=== PATIENT | female | born 1985 | race Caucasian/White ===

== ENCOUNTER 2017-09-24 11:44 | Emergency (ER) | payer MEDICARE, MEDICAID ==
[2017-09-24 12:15] VITALS: BP 141/77
--- NOTE | 2017-09-24 12:22 | UC ---
Lower Extremity/Ankle HPI - HPI Summary HPI Summary: per mom, pt was at dayhab on friday, that night he had L foot pain and swelling. , he went to his pcp and had negative xrays. here for ongoing pain and swelling. he is wearing his mom's flip flop. mom states pt is non verbal due to aspergers and down syndrom. there is no known hx injury. mom denies fever. - History of Current Complaint Chief Complaint: UCLowerExtremity Stated Complaint: RIGHT FOOT/ANKLE COMPLAINT Time Seen by Provider: 09/24/17 12:07 Hx Obtained From: Family/Manager Of Quality Onset/Duration: Gradual Onset Pain Intensity: 6 Aggravating Factor(s): Ambulation Alleviating Factor(s): Nothing Able to Bear Weight: Yes - Allergies/Home Medications Allergies/Adverse Reactions: Allergies Allergy/AdvReac Type Severity Reaction Status Date / Time cefaclor [From [facility]] Allergy Hives Verified 09/24/17 12:12 Sulfa (Sulfonamide Allergy Hives Verified 09/24/17 12:12 Antibiotics) Home Medications: Home Medications Ibuprofen TAB* [Advil TAB*] 400 mg PO Q6H PRN 09/24/17 [History Confirmed ] PMH/Surg Hx/FS Hx/Imm Hx - Additional Past Medical History Additional PMH: Down syndrom, aspergers Endocrine History: Diabetes - Surgical History Surgical History: Yes Surgery Procedure, Year, and Place: [facility], 1997, [place] - Family History Known Family History: Positive: Other - thyroid dz - Social History Occupation: Disabled Lives: With Family Alcohol Use: None Substance Use Type: None Smoking Status (MU): Never Smoked Tobacco - Immunization History Vaccination Up to Date: Yes Review of Systems Constitutional: Negative Skin: Negative ENT: Negative Respiratory: Negative Cardiovascular: Negative Gastrointestinal: Negative Genitourinary: Negative Motor: Negative Neurovascular: Negative Musculoskeletal: Other: - pain/swell R foot/ankle Neurological: Negative Psychological: Negative All Other Systems Reviewed And Are Negative: Yes - Comments Additional Review of Systems Comments: mom states he understands her son and denies all other ros Physical Exam Triage Information Reviewed: Yes Appearance: Well-Appearing Vital Signs: Initial Vital Signs Temp 97.6 F 09/24/17 12:08 Pulse 103 09/24/17 12:08 Resp 18 09/24/17 12:08 BP 141/77 05/30/18 12:08 Pulse Ox 100 09/24/17 12:08 Vital Signs Reviewed: Yes Eyes: Positive: Conjunctiva Clear ENT: Positive: Normal ENT inspection Neck: Positive: Supple, Nontender, No Lymphadenopathy Respiratory: Positive: Lungs clear, Normal breath sounds Cardiovascular: Positive: RRR, No Murmur Abdomen Description: Positive: Nontender, No Organomegaly, Soft Bowel Sounds: Positive: Present Musculoskeletal: Positive: Other: - RLE: ankle and proximal foot with swelling but no rash or warmth. per mom facial expression confirms tenderness. gross s/v/ m ids intact. observed gait-slow but steady. rest of RLE is unremarkable. Neurological: Positive: Alert Psychological: Positive: Normal Response To Family, Age Appropriate Behavior - for him per the mom Skin Exam: Normal Lower Extremity Course/Dx - Course Course Of Treatment: pt refused to take pain medication. no hx htn, i think bp cc/visit related. no concern for infection. not red or warm. also not typical of gout thus doubtful. no fx on xray. will splint and refer to orthopedics - Differential Dx/Diagnosis Provider Diagnoses: Acute pain/swelling R foot ankle Discharge - Sign-Out/Discharge Documenting (check all that apply): Discharge/Admit/Transfer - Discharge Plan Condition: Stable Disposition: HOME Patient Education Materials: Sprain (ED) Referrals: Anjelica Brantley MD [Primary Care Provider] - If Needed Olivier Farah MD [Medical Doctor] - 5 Days - Billing Disposition and Condition Condition: STABLE Disposition: HOME
[2017-09-24] MEDS: Ibuprofen TAB* 200 MG PO ONE ×2 (12:33→12:36)
--- NOTE | 2017-09-24 13:02 | RAD ---
Indication: RIGHT foot and ankle pain and swelling without known trauma. Comparison: No relevant prior exams available on the [facility] PACS. Technique: AP, lateral, and oblique views RIGHT ankle. AP, lateral, and oblique views RIGHT foot. REPORT AND IMPRESSION: Normal articular alignment and preserved joint spaces at the ankle and foot. No fracture or osteochondral lesion evident. Small plantar fascia origin bone spur and small os peroneum accessory ossicles noted. Diffuse soft tissue swelling most prominent about the ankle and hind through mid foot.
--- NOTE | 2017-09-24 13:02 | RAD ---
Indication: RIGHT foot and ankle pain and swelling without known trauma. Comparison: No relevant prior exams available on the [facility] PACS. Technique: AP, lateral, and oblique views RIGHT ankle. AP, lateral, and oblique views RIGHT foot. REPORT AND IMPRESSION: Normal articular alignment and preserved joint spaces at the ankle and foot. No fracture or osteochondral lesion evident. Small plantar fascia origin bone spur and small os peroneum accessory ossicles noted. Diffuse soft tissue swelling most prominent about the ankle and hind through mid foot.
== END 2017-09-24 13:28 | disposition home or self-care (01) ==
LOC: UCCORT 11:44
DX: M79.671 Pain in right foot (principal); M25.571 Pain in right ankle and joints of right foot; M79.89 Other specified soft tissue disorders; M25.471 Effusion, right ankle; F84.5 Asperger's syndrome; Q90.9 Down syndrome, unspecified
CPT/HCPCS: 99202; A9270-GY; G0463

== ENCOUNTER 2017-12-20 16:14 | Emergency (ER) | payer MEDICARE, MEDICAID ==
[2017-12-20 16:38] VITALS: BP 130/75
--- NOTE | 2017-12-20 16:48 | UC ---
Ear Complaint HPI - HPI Summary HPI Summary: c/o pain to R ear and R side of head since yesterday. today, mom notes sneezing , head congestion and drainage from R ear. no fever or hx of injury. - History of Current Complaint Chief Complaint: UCEar Stated Complaint: RIGHT EAR PAIN Time Seen by Provider: 12/20/17 16:40 Hx Obtained From: Family/Mold Maker Onset/Duration: Gradual Onset Pain Intensity: 5 Aggravating Factors: Nothing - Allergies/Home Medications Allergies/Adverse Reactions: Allergies Allergy/AdvReac Type Severity Reaction Status Date / Time sertraline [From Zoloft] Allergy Severe Anaphylatic Verified 12/20/17 16:29 Shock cefaclor [From Ceclor] Allergy Hives Verified 12/20/17 16:28 Sulfa (Sulfonamide Allergy Hives Verified 12/20/17 16:28 Antibiotics) PMH/Surg Hx/FS Hx/Imm Hx - Additional Past Medical History Additional PMH: Asperger's, Down Syndrome, Hearing Loss, ear infections - Surgical History Surgical History: Yes Surgery Procedure, Year, and Place: Sinus, On license of [facility] [place] - Family History Known Family History: Positive: Other - thyroid dz - Social History Occupation: Disabled Lives: With Family Alcohol Use: None Substance Use Type: None Smoking Status (MU): Never Smoked Tobacco - Immunization History Vaccination Up to Date: Yes Review of Systems Constitutional: Negative Skin: Negative Eyes: Negative ENT: Ear Ache - r, Sinus Congestion Respiratory: Negative Cardiovascular: Negative Gastrointestinal: Negative Genitourinary: Negative Motor: Negative Neurovascular: Negative Musculoskeletal: Negative Neurological: Negative Psychological: Negative Is Patient Immunocompromised?: No All Other Systems Reviewed And Are Negative: Yes Physical Exam Triage Information Reviewed: Yes Appearance: Well-Appearing Vital Signs: Initial Vital Signs Temp 98 F 12/20/17 16:30 Pulse 103 12/20/17 16:30 Resp 20 12/20/17 16:30 BP 130/75 12/20/17 16:30 Pulse Ox 99 12/20/17 16:30 Vital Signs Reviewed: Yes Eyes: Positive: Conjunctiva Clear ENT: Positive: Pharynx normal, Nasal congestion, TMs normal - L. R tm not visible do to exudate in canal. no auricular adenopathy or mastoid tenderness.. Negative: Nasal drainage Neck: Positive: Supple, Nontender, No Lymphadenopathy Respiratory: Positive: Lungs clear, Normal breath sounds Cardiovascular: Positive: RRR, No Murmur Abdomen Description: Positive: Nontender, No Organomegaly, Soft Bowel Sounds: Positive: Present Musculoskeletal: Positive: ROM Intact Neurological: Positive: Alert Psychological: Positive: Normal Response To Family Skin Exam: Normal Ear Complaint Course/Dx - Course Course Of Treatment: since TM not visible. will cover for OM and OE. - Differential Dx/Diagnosis Provider Diagnoses: Infection R ear. since TM not visible. will cover for OM and OE. Discharge - Sign-Out/Discharge Documenting (check all that apply): Patient Departure All imaging exams completed and their final reports reviewed: No Studies - Discharge Plan Condition: Stable Disposition: HOME Prescriptions: Amoxicillin PO (*) [Amoxicillin 875 MG (*)] 875 mg PO BID 7 Days #14 tab Ciproflox/Dexameth OTIC.SUSP* [Ciprodex OTIC.SUSP*] 4 drop .SEE ORDER BID 7 Days #1 btl Patient Education Materials: Ear Infection (ED) Referrals: Anjelica Brantley MD [Primary Care Provider] - 7 Days - Billing Disposition and Condition Condition: STABLE Disposition: Home
== END 2017-12-20 16:58 | disposition home or self-care (01) ==
LOC: UCCORT 16:14
DX: H66.91 Otitis media, unspecified, right ear (principal); Z88.1 Allergy status to other antibiotic agents; Z88.8 Allergy status to other drugs, medicaments and biological substances
CPT/HCPCS: 99212; G0463